=== PATIENT | female | born 1940 | race African-American/Black ===

== ENCOUNTER 2017-01-18 21:25 | Inpatient (IN) ==
[2017-01-18 23:15] LABS: MANUAL DIFF NEEDED? NO
[2017-01-18 23:18] LABS: BASO% 0.3 % (0.0-0.8); HEMATOCRIT 38.6 % (37.0-47.0); HEMOGLOBIN 12.6 g/dL (12.0-16.0); LYMPH# 1.13 X1000 (1.2-3.4); LYMPH% 28.4 % (20.5-51.1); MCH 29.5 PG (27-31); MCHC 32.6 g/dL (33-37); MCV 90.4 FL (81-99); MONO# 0.35 X1000 (0.11-0.59); MONO% 8.8 % (1.7-9.3); MPV 12.2 FL (7.4-10.4); NEUT% 62.5 % (42.2-75.2); PLT 154 X1000 (130-400); RBC 4.27 XMIL (4.2-5.4)
[2017-01-19] LABS: AGAP 11; ALBUMIN 3.3 g/dL (3.5-5.0); ALKALINE PHOSPHATASE 36 U/L (32-104); BUN 15 mg/dL (8-22); CALCIUM 9.9 mg/dL (8.8-10.2); CHLORIDE 100 mmol/L (98-107); COSMO 284; GOT 24 U/L (10-30); GPT 11 U/L (10-36); POTASSIUM 2.5 mmol/L (3.5-5.1); SODIUM 142 mmol/L (136-145); TCO2 31 mmol/L (25-35); TOTAL BILIRUBIN 1.56 mg/dL (0.20-1.00); TOTAL PROTEIN 6.1 g/dL (6.3-8.3)
[2017-01-19 01:22] LABS: INR 1.37; PROTIME 14.7 Seconds (9.2-11.7); PTT 27.9 Seconds (22.0-36.0)
[2017-01-19] MEDS: POTASSIUM CHLORIDE 20 MEQ/SWI 20 MEQ/100 ML IVPB IV SCH ×4 (01:43→16:12)
--- NOTE | 2017-01-19 01:46 | PROVIDER DOCUMENTATION ---
HPI-General Adult - General Chief Complaint: Edema Stated Complaint: SWOLLEN FEET/LEGS Time Seen by Provider: 01/18/17 22:02 Source: patient, family Allergies/Adverse Reactions: Patient Allergies Allergy/AdvReac Type Severity Reaction Status Date / Time No Known Allergies Allergy Verified 01/18/17 22:01 - History of Present Illness -Gen Adult Nature of Presenting Problems: PT C/O SWELLING TO BILATERAL LEGS. DAUGHTER STS THIS STARTED TODAY. STS PT IS MOSTLY IMMOBILE AND STAYS IN BED A LOT, CAUSING HER TO GET A BEDSORE. DENIES HEART FAILURE OR RENAL ISSUES. Location of Pain/Injury: reports: lower extremity Quality of Pain: reports: none Onset/Duration: reports: this morning Timing: reports: still present Associated Symptoms: reports: denies symptoms Similar Symptoms Previously?: No Recently seen or treated by another doctor?: No Review of Systems - Adult - REVIEW OF SYSTEMS - ADULT Constitutional: reports: no symptoms reported. denies: fever Eyes: reports: no symptoms reported Ears, Nose, Mouth & Throat: reports: no symptoms reported Cardiovascular: reports: see HPI, edema. denies: chest pain, palpitations, syncope Respiratory: reports: no symptoms reported. denies: cough, dyspnea on exertion , shortness of breath Gastrointestinal: reports: no symptoms reported. denies: abdominal pain, constipation, diarrhea, nausea Genitourinary: reports: no symptoms reported. denies: dysuria Musculoskeletal: reports: no symptoms reported Integumentary: reports: see HPI, skin sores/ulcer Neurological: reports: no symptoms reported. denies: dizziness/vertigo Psychiatric: reports: no symptoms reported Endocrine: reports: no symptoms reported Hematologic/Lymphatic: reports: no symptoms reported Allergic/Immunologic: reports: no symptoms reported All Other Systems: Reviewed and Negative Past History - Adult - PAST MEDICAL HISTORY-ADULT Review of Records: reports: Nursing Assessment Review, Medications Reviewed Major Childhood Illnesses: reports: denies history Cardiovascular: reports: HTN Respiratory: reports: denies history Gastrointestinal: reports: denies history Obstetrical/Gynecological: reports: denies history Genitourinary: reports: denies history Musculoskeletal: reports: denies history Neurological: reports: denies history Psychiatric: reports: denies history Endocrine/Immune: reports: denies history Other Conditions: reports: denies history Physical Exam-General - PHYSICAL EXAM-ADULT Initial Vital Signs Reviewed: Yes - CONSTITUTIONAL General Appearance: appears well, alert, no apparent distress, thin - EYES Eyes: PERRL/EOMI - HEAD, EARS, NOSE, MOUTH & THROAT HENMT: normocephalic/atraumatic, moist mucous membranes - RESPIRATORY Respiratory: chest non-tender, lungs clear, normal breath sounds, no pleuratic chest pain, no respiratory distress, no accessory muscle use - CARDIOVASCULAR Cardiovascular: normal peripheral pulses, tachycardia, irregularly irregular - GASTROINTESTINAL (ABDOMEN) Abdominal Exam: normal bowel sounds, non tender, soft, no organomegaly, no pulsatile mass - MUSCULOSKELETAL Back Exam: normal inspection Extremity: normal range of motion, non-tender, no calf tenderness, normal capillary refill, pedal edema (3+ PITTING) Peripheral Pulses: dorsalis-pedis (R): 3+, dorsalis-pedis (L): 3+ - SKIN Integumentary: normal color, normal turgor, warm/dry, decubitus (TO RT BUTTOCK, PROBABLE STG 2) - NEUROLOGIC Neurologic: grossly normal, no motor/sensory deficits - PSYCHIATRIC Psych/Mental Status: normal mood/affect, oriented x 3 Progress - PLAN OF CARE/RESULTS Progress/Plan/Lab Results: Vital Signs - 8 hr 01/18/17 21:29 01/19/17 00:53 Temperature 98.5 F Pulse Rate 115 H 102 H Respiratory Rate 18 18 Blood Pressure 151/107 149/112 O2 Sat by Pulse Oximetry 99 99 Laboratory Results - last 24 hr 01/18/17 01/18/17 01/18/17 22:50 22:50 22:50 WBC 3.98 L RBC 4.27 Hgb 12.6 Hct 38.6 MCV 90.4 MCH 29.5 MCHC 32.6 L RDW Std Deviation 15.7 H Plt Count 154 MPV 12.2 H Immature Gran % (Auto) 0.0 Neut % (Auto) 62.5 Lymph % (Auto) 28.4 Andrew % (Auto) 8.8 Eos % (Auto) 0.0 Baso % (Auto) 0.3 Immature Gran # (Auto) 0.00 Neut # (Auto) 2.49 Lymph # (Auto) 1.13 L Andrew # (Auto) 0.35 Eos # (Auto) 0.00 Baso # (Auto) 0.01 PT INR PTT (Actin FS) Sodium 142 Potassium 2.5 L* Chloride 100 Carbon Dioxide 31 Anion Gap 11 BUN 15 Creatinine 0.6 Estimated GFR/1.73 m2 > 60 BUN/Creatinine Ratio 25 Glucose 94 Calculated Osmolality 284 Calcium 9.9 Total Bilirubin 1.56 H AST 24 ALT 11 Alkaline Phosphatase 36 Creatine Kinase Troponin T Hwv-T-Tslrebbhnjm Pept 1492 H Total Protein 6.1 L Albumin 3.3 L Globulin 2.8 Albumin/Globulin Ratio 1.2 01/18/17 01/18/17 01/18/17 22:50 22:50 22:50 WBC RBC Hgb Hct MCV MCH MCHC RDW Std Deviation Plt Count MPV Immature Gran % (Auto) Neut % (Auto) Lymph % (Auto) Andrew % (Auto) Eos % (Auto) Baso % (Auto) Immature Gran # (Auto) Neut # (Auto) Lymph # (Auto) Andrew # (Auto) Eos # (Auto) Baso # (Auto) PT 14.7 H INR 1.37 PTT (Actin FS) 27.9 Sodium Potassium Chloride Carbon Dioxide Anion Gap BUN Creatinine Estimated GFR/1.73 m2 BUN/Creatinine Ratio Glucose Calculated Osmolality Calcium Total Bilirubin AST ALT Alkaline Phosphatase Creatine Kinase 93 Troponin T < 0.010 Nrt-N-Bcfhfrrcsbm Pept Total Protein Albumin Globulin Albumin/Globulin Ratio Orders Category Date Time Status Saline Loc NOW Care 01/18/17 22:34 Active CHEST-1 VIEW [RAD] Stat Exams 01/19/17 00:37 Taken CBC WITH ELECTRONIC DIFF [HEME] Stat Lab 01/18/17 22:50 Completed CK PROFILE [SP CHEM] Stat Lab 01/19/17 01:05 Completed COMPREHENSIVE METABOLIC PANEL [CHEM] Stat Lab 01/18/17 22:50 Completed PRO B-NATRIURETIC PEPTIDE Stat Lab 01/18/17 22:50 Completed PT [PROTIME WITH INR] [COAG] Stat Lab 01/19/17 01:05 Completed PTT [COAG] Stat Lab 01/19/17 01:05 Completed TROPONIN T Stat Lab 01/19/17 01:05 Completed Potassium Chloride 20 Meq/Swi Med 01/19/17 01:00 Active 20 meq in 100 ml IV Q2H EKG [EKG] Stat Ther 01/19/17 00:24 Ordered Result Diagrams: 01/18/17 22:50 01/18/17 22:50 - CONSULTS/PCP/HOSPITALIST Notification #1 *Consult/PCP/Hospitalist*: DR. CALDERA Time Discussed: 01:00 (DISCUSSED PT EXAM AND LABS WITH DR. CALDERA WHO AGREES TO ADMIT.) Consult Disposition: Admit Departure - Departure Date of Disposition Decision: 01/19/17 Time of Disposition Decision: 01:00 DIAGNOSIS: New onset atrial fibrillation, Pedal edema, Hypokalemia Disposition: ADMITTED INPATIENT 09 Certified Medical Emergency: Emergent Condition: Stable - Critical Care Note This patient required my direct & personal management of CC.: No Attestation - Physician/ KATIE Attestation Patient care was provided by Advanced Practice Provider:: Yes Advanced Practice Provider:: Sydnie Blanc Advanced Practice Provider documentation review:: The Mid-level provider documentation, treatment plan and medical decision making was reviewed by the physician who agrees with all treatment and medical decision making by the MLP.
[2017-01-19] MEDS ORDERED: ZOFRAN IV PRN (01:54)
[2017-01-19] MEDS ORDERED: LOPRESSOR PO ONE (01:54)
[2017-01-19] MEDS ORDERED: CARDIZEM 100 MG/NS 100 MG/100 ML IVPB IV SCH (01:54)
[2017-01-19] MEDS: LASIX IV SCH ×2 (02:32→13:19)
[2017-01-19] MEDS ORDERED: TYLENOL PO PRN (03:25)
[2017-01-19 03:28] LABS: URINE CULTURE NEEDED? NO; URINE MICRO REVIEW NEEDED? NO; URINE SOURCE CATH
[2017-01-19] MEDS ORDERED: LANOXIN IV ONE (03:29)
[2017-01-19 03:35] LABS: BILIRUBIN URINE NEGATIVE (NEGATIVE); BLOOD URINE SMALL (NEGATIVE); COLOR STRAW; GLUCOSE URINE NEGATIVE (NEGATIVE); LEUKOCYTES URINE NEGATIVE (NEGATIVE); NITRITE URINE NEGATIVE (NEGATIVE); PROTEIN URINE NEGATIVE (NEGATIVE); SP GRAVITY URINE 1.004; TURBIDITY URINE HAZY (CLEAR); UROBILINOGEN URINE NORMAL (NORMAL)
[2017-01-19 03:37] LABS: UR EPITHELIAL CELLS >10 /HPF (<10); URINE BACTERIA NEGATIVE /HPF; URINE RBC <10 /HPF (<10); URINE WBC <10 /HPF (<10)
[2017-01-19] MEDS ORDERED: B & O 15A SUPP PR ONE (04:18)
[2017-01-19] MEDS ORDERED: LOVENOX SUBQ ONE (04:29)
[2017-01-19] MEDS ORDERED: PRILOSEC PO ONE (04:29)
[2017-01-19] MEDS ORDERED: MAGNESIUM SULFATE 1 GM/D5W 1 GM/100 ML IVPB IV ONE (05:29)
[2017-01-19 05:38] LABS: MANUAL DIFF NEEDED? NO
[2017-01-19 05:48] LABS: BASO% 0.9 % (0.0-0.8); HEMATOCRIT 46.8 % (37.0-47.0); HEMOGLOBIN 15.3 g/dL (12.0-16.0); LYMPH% 24.1 % (20.5-51.1); MCH 29.4 PG (27-31); MCHC 32.7 g/dL (33-37); MONO# 0.27 X1000 (0.11-0.59); MONO% 5.9 % (1.7-9.3); MPV 12.1 FL (7.4-10.4); NEUT% 69.1 % (42.2-75.2); PLT 157 X1000 (130-400)
[2017-01-19 06:23] LABS: MAGNESIUM 1.3 mg/dL (1.5-2.7)
--- NOTE | 2017-01-19 06:31 | EKG Report ---
Test Performed on : 01/19/2017 00:51:48 AM Test Reason : TACHYCARDIA Blood Pressure : / mmHG Vent. Rate : 096 BPM Atrial Rate : 375 BPM P-R Int : 000 ms QRS Dur : 112 ms QT Int : 392 ms P-R-T Axes : 000 082 027 degrees QTc Int : 495 ms Atrial fibrillation. Minimal voltage criteria for LVH, may be normal variant Nonspecific ST and T wave abnormality Prolonged QT Abnormal ECG No previous ECGs available Unconfirmed Result
--- NOTE | 2017-01-19 06:36 | EKG Report ---
Test Performed on : 01/19/2017 05:36:50 AM Test Reason : Heart Failure Admission Blood Pressure : / mmHG Vent. Rate : 072 BPM Atrial Rate : 104 BPM P-R Int : 000 ms QRS Dur : 090 ms QT Int : 468 ms P-R-T Axes : 000 085 095 degrees QTc Int : 512 ms Atrial fibrillation. Voltage criteria for left ventricular hypertrophy Nonspecific ST and T wave abnormality Prolonged QT Abnormal ECG When compared with ECG of 19-JAN-2017 00:51, (Unconfirmed) ST now depressed in Anterior leads Inverted T waves have replaced nonspecific T wave abnormality in Anterior leads Confirmed by Jessy Voss MD ([id number]) on 01/19/2017 12:51:24 PM
--- NOTE | 2017-01-19 07:38 | Diag Imaging Result Doc PS360 ---
EXAM: CHEST-1 VIEW HISTORY: NEW ONSET AFIB TECHNIQUE: AP portable at 0050 COMMENT: There is cardiomegaly. There is increased interstitial markings between the right parahilar region. IMPRESSION: Cardiomegaly and minimal interstitial pulmonary edema. Electronically signed by Beltran Cornejo 01/19/2017 7:36 AM
[2017-01-19 08:19] LABS: AGAP 16; BUN 14 mg/dL (8-22); CHLORIDE 98 mmol/L (98-107); COSMO 288; POTASSIUM 3.4 mmol/L (3.5-5.1); SODIUM 144 mmol/L (136-145); TCO2 30 mmol/L (25-35)
[2017-01-19] MEDS: AVAPRO PO SCH (10:09)
[2017-01-19] MEDS ORDERED: MAGNESIUM SULFATE 2 GM/S.W.I. 2 GM/50 ML IVPB IV ONE (12:03)
--- NOTE | 2017-01-19 13:26 | HISTORY AND PHYSICAL ---
PRIMARY CARE PROVIDER: Sylwia Larios MD. Date and Time of History and Physical: 01/19/2017 at 0130. CHIEF COMPLAINT: Edema and shortness of breath. HISTORY OF PRESENT ILLNESS: Ms. Montez is a 76-year-old, female , who presented to the ER [facility] with complaints of increased edema in her legs as well as feeling increasingly short of breath, weak, over the past few days. She has also reported some intermittent dizziness. The patient's daughter who was at bedside reports that she frequently has swelling in her extremities, though this is usually unilateral. Though the patient's son who lives with her noticed that for the past 2 days both of her feet have been quite swollen and this has steadily gotten worse. The patient also complains of shortness of breath that has steadily gotten worse as well. She states that she becomes very short of breath, weak and tired with exertion and has to sit down and rest often. The patient denies any previous cardiac history except for reported hypertension. She states that she has not seen Dr. Larios in over a year. She currently lives at home. Her son does live with her and helps care for her. At this time , daughter states that normally she is able to get around independently, though does have a walker if she needs it, though she does not use it often. Her daughter reports that for the past 5 years, her mother has had symptoms of dementia and has noticed that they have progressively gotten worse. The patient is alert and oriented to person and place, though not time. She is able to answer some questions of history of present illness and past medical history, though at times is pleasantly confused. She denies any headache, visual changes, chest pain, cough, abdominal pain, nausea, vomiting, or diarrhea. She reports that her last bowel movement was yesterday. She denies any hematochezia or melena. She denies any dysuria or urinary frequency or changes in her urinary output. Other than the swelling in her bilateral lower extremities, she denies any pain, numbness or tingling in extremities. The patient does complain of some low back pain on her coccyx, sacrum area. It does appear that the patient does have a pressure wound that has developed. She stated initially that she thought she bumped this on something and it has just steadily gotten worse. She does have some broken skin noted to this area. Upon evaluation in the ER, she was found to have elevated proBNP of 1492. Chest x-ray did show increased pulmonary vascular markings. EKG showed atrial fibrillation at a rate of 96. The patient also had a potassium of 2.5. All other cardiac enzymes were negative at the time. At this time, we will admit the patient for further treatment and evaluation of her new onset atrial fibrillation as well as congestive heart failure and hypokalemia. REVIEW OF SYSTEMS: A 12 point review of systems was conducted with the patient and all were negative except for pertinent positives mentioned in above HPI. PAST MEDICAL HISTORY: Hypertension. PAST SURGICAL HISTORY: 1. Hysterectomy. 2. An unknown abdominal surgery for what the daughter describes was secondary to some gastrointestinal bleeding from NSAID use, though we are not sure how long ago this surgery was performed. SOCIAL HISTORY: The patient denies any cigarette use, though does use smokeless tobacco. She denies any alcohol or illicit drug use. As previously mentioned, she currently lives at home with her son, who helps take care of her. She usually ambulates independently, though does have a walker if she needs help. FAMILY HISTORY: Positive for her mother having a history of congestive heart failure. Her daughter states that the patient's father at the age of 5 and they do not know his cause of . She does have 7 other siblings though she cannot tell me any of their medical history. ALLERGIES: The patient has no known allergies. HOME MEDICATIONS: We are awaiting the patient's home medication list to be updated at this time though looking back in the pharmacy external medication history, it does show that the patient has filled a prescription for metoprolol tartrate 25 mg as well as irbesartan hydrochlorothiazide combination tablet, 300-12.5 mg. At this time, we have placed orders for the patient home medications to be verified with her pharmacy. DIAGNOSTIC DATA/LABORATORY RESULTS: White blood cell count 3.98, hemoglobin 12.6, hematocrit 38.6, platelet count 154. PT 14.7. INR 1.37. PTT is 27.9. Sodium 142, potassium 2.5, chloride 100, bicarb 31, BUN 15, creatinine 0.6, glucose 94, calcium 9.9, magnesium 1.4. Total bilirubin is 1.56, AST 24, ALT 11, alkaline phosphatase is 36. CK 93, troponin less than 0.01. Urinalysis was obtained via catheter, was positive for small blood. It was otherwise within normal limits. EKG showed atrial fibrillation at her rate of 96. Also noted was nonspecific ST and T-wave abnormality as well as a prolonged QT. QTc was 495. Chest x-ray showed increased pulmonary vascular markings, though we are awaiting the official radiology over-read. PHYSICAL EXAMINATION: VITAL SIGNS: Temperature 98.8, heart rate 110, respiratory rate 20, blood pressure 135/82. Oxygen saturation was 92% nasal cannula on room air, though on 2 L, she did improve to 96%. GENERAL: Ms. Montez is a very pleasant, 76-year-old, female who is resting comfortably in the ER stretcher. She is in no acute distress. She was awake and alert. The patient did know that she was at the hospital and what her name was, though did not know what month it was, she stated it was August. Other than this, she is pleasantly confused. HEENT: Head is atraumatic, normocephalic. Pupils are equal, round, reactive to light, were 3 mm bilaterally and brisk. Subconjunctiva are pink. Oral mucosa is moist. Oropharynx is clear. NECK: Supple. Trachea midline. No carotid bruits noted upon auscultation bilaterally. The patient does have JVD noted. CARDIOVASCULAR: Patient has normal S1, S2. No murmurs, gallops, rubs appreciated with a tachycardic rate that is irregular. PULMONARY: Patient has symmetrical chest expansion bilaterally. Lung sounds are clear to auscultation in bilateral full walsh. ABDOMEN: Soft, nontender, nondistended. Bowel sounds were present and all 4 quadrants were slightly hyperactive. EXTREMITIES: No cyanosis or clubbing noted. The patient does have edema noted from mid thigh down on bilateral lower extremities. From approximately ankle down, she has 3+ pitting edema. Pulse, motor and sensory is intact though. Pedal pulses are 3+ bilaterally. Capillary refill less than 3. INTEGUMENTARY: The patient's skin is pink, warm, dry, and intact. No lesions or sores noted. NEUROLOGICAL: The patient is alert and oriented to person, and place only. Though other than stating the month wrong, she did answer some questions correctly, that has required the assistance of her daughter at bedside for obtaining history of present illness as well as past medical history. Otherwise cranial nerves 2-12 are grossly intact. ASSESSMENT AND PLAN: 1. Congestive heart failure. The patient does not have a previous history of this. We will diurese her with Lasix 40 mg IV q.12 hours. We have also placed her on metoprolol 50 mg twice a day. We will repeat EKG in the morning. We will do a series of cardiac enzymes. I have placed an order for an echocardiogram in the morning as well. She will be on a heart healthy diet. We will do daily weights. Strict intake and output. We did place a consult with Cardiology and will await their evaluation and further recommendations. 2. New onset atrial fibrillation. Initially, the patient's rate was not that high, it was ranging from the 90s to 120s, though during my examination in the ER, the patient's heart rate did increase, getting up to the 160s to 170s. She was placed on a Cardizem drip and given a stat dose of metoprolol 50 mg p.o. Though her heart rate was still sustaining in the 160s, we did go ahead and give her a dose of digoxin 250 mcg IV. After receiving these medications, the patient's heart rate did improve. It actually improved so much though that we were able to turn the Cardizem drip off at this time though we will continue to closely monitor her heart rate. At this time, she still has atrial fibrillation but it is rate controlled. Given the patient's history, she does have a ANNA score of 5. We did go ahead and decide to provide anticoagulation with Lovenox 1 mg/kg x1 dose and we will allow Cardiology to decide further anticoagulation. We did order a TSH as well and are awaiting those results at this time and will continue to follow. 3. Hypertension. We will continue the patient's irbesartan, though we have ordered this by itself only, 300 mg p.o. daily. We have discontinued the hydrochlorothiazide given that the patient does have hypokalemia noted and this could be secondary to this medication. 4. Hypokalemia. The patient was given 40 mEq of potassium chloride IV. We will monitor her cardiac status closely and repeat a BMP after infusion. 5. Hypomagnesemia. Her magnesium was slightly low at 1.3. We will replenish this with 1 g of Mag sulfate IV and continue to follow. 6. Deep vein thrombosis prophylaxis was provided with previously mentioned Lovenox though this is a one time dose. We are awaiting Cardiology for further recommendations on further anticoagulation. The patient was placed in ICU with telemetry. We did go ahead and place her on Prilosec. A Loading dose of 40 mg x1 dose with 20 mg p.o. daily for gastrointestinal prophylaxis. We did place a wound care consult for the patient's pressure sore on her sacrum. Further orders and recommendations pending hospital course, diagnostic studies, and physician evaluation. CRITICAL CARE TIME: On this patient was approximately 45 minutes. Dictated by MEI Villa for Maximus Cartwright MD Seen,examined and discussed plan of care with CUSTOMS PORT DIRECTOR. cc: Maximus Cartwright MD MTDD
--- NOTE | 2017-01-19 17:43 | CONSULTATION ---
DATE OF CONSULTATION: 01/19/2017 CARDIOLOGY CONSULT NOTE: IMPRESSION: 1. Paroxysmal atrial fibrillation. Patient developed atrial fibrillation, rapid ventricular rate, and has subsequently developed some tendency toward bradycardia on intravenous Cardizem, low-dose metoprolol, and addition of digoxin. 2. Acute on chronic heart failure, probably diastolic in nature. Cannot entirely exclude a component of right-sided heart failure. 3. Hypertensive cardiovascular disease. 4. Hyperlipidemia. 5. Dementia. RECOMMENDATIONS: 1. Cautious diuresis. 2. Discontinue intravenous diltiazem and digoxin. We will try to manage the patient's heart rate with judicious metoprolol. 3. The patient has CHADS Vasc score significant enough to consider anticoagulation for thromboembolic risk protection. However patient has difficulty with ambulation and is a fall risk. Her regular binding folder machine has elected to treat her with anti-platelet agent, aspirin, and this appears reasonable. 4. Hypokalemia and hypomagnesemia. Replete electrolytes. 5. Echocardiography. HISTORY: This 76-year-old female with past history of hypertensive cardiovascular disease, diastolic heart failure, paroxysmal atrial fibrillation, hyperlipidemia, and dementia was admitted with dyspnea and bilateral lower extremity swelling. She was found to be in atrial fibrillation with rapid ventricular rate. She has started on intravenous Cardizem and admitted to the intensive care unit. She is being diuresed. Digoxin was also utilized for rate control along with metoprolol. She developed some tendency for bradycardia and intravenous Cardizem has been discontinued. The patient is not contributing much to the history gathering due to her dementia. History obtained from her family and from the current medical record. She recently started having progressive lower extremity swelling and then developed some dyspnea. There has been no chest pain. She is ambulatory on a limited basis. She has a bed sore due to the fact that she stays in bed a fair amount of time. There has been no chest pain or syncope. PAST MEDICAL HISTORY: 1. Paroxysmal atrial fibrillation. 2. Hypertension. 3. Depression. 4. Dementia. 5. Hyperlipidemia. 6. Gastroesophageal reflux. PAST SURGICAL HISTORY: Includes abdominal surgery for small bowel obstruction. ALLERGIES: She has no known drug allergies. MEDICATIONS: As listed. SOCIAL HISTORY: She lives with her son. She does not smoke currently. There is some history of smoking in the past. She does not use alcohol. FAMILY HISTORY: Negative for premature coronary disease. REVIEW OF SYSTEMS: Not reliably obtainable given patient's dementia. PHYSICAL EXAMINATION: General: This is a thin, elderly female in no distress on supplemental oxygen per nasal cannula. Vital Signs: As recorded are stable. HEENT: Extraocular movements appear intact. Mucous membranes moist. Neck: Supple. Jugular distention is evident, suggesting elevated central venous pressure. Chest: Clear to auscultation anteriorly. Cardiac Exam: A irregular rate and rhythm without appreciable murmur or gallop. Abdomen: Soft. Bowel sounds audible. Extremities: Demonstrate moderate pretibial edema. Neurologic Exam: Reveals her to be somewhat sleepy but arousable. She appears to be confused. Speech is fluent when she does talk. She moves all 4 extremities equally well. DIAGNOSTIC DATA: EKG this morning shows atrial fibrillation, voltage criteria for left hypertrophy, and nonspecific ST and T-wave abnormality. Mild QT prolongation also demonstrated. LAB DATA: Remarkable for pro B-type natriuretic peptide level 1492, magnesium 1.3, potassium 3.4. cc: Hany Rogel MD
[2017-01-19] MEDS: LOPRESSOR PO SCH ×2 (21:25→21:31)
[2017-01-20] MEDS: LASIX IV SCH ×2 (03:13→15:12)
[2017-01-20 05:59] LABS: AGAP 9; BUN 15 mg/dL (8-22); CALCIUM 9.8 mg/dL (8.8-10.2); CHLORIDE 98 mmol/L (98-107); COSMO 293; SODIUM 147 mmol/L (136-145); TCO2 40 mmol/L (25-35)
[2017-01-20] MEDS: PRILOSEC PO SCH (06:11)
[2017-01-20] MEDS: AVAPRO PO SCH (09:11)
[2017-01-20] MEDS: LOPRESSOR PO SCH ×2 (09:12→22:29)
--- NOTE | 2017-01-20 10:30 | EKG Report ---
Test Performed on : 01/20/2017 08:46:38 AM Test Reason : afib Blood Pressure : / mmHG Vent. Rate : 071 BPM Atrial Rate : 094 BPM P-R Int : 000 ms QRS Dur : 088 ms QT Int : 418 ms P-R-T Axes : 000 061 -42 degrees QTc Int : 454 ms Atrial fibrillation. Nonspecific ST and T wave abnormality Abnormal ECG When compared with ECG of 19-JAN-2017 05:36, T wave inversion no longer evident in Lateral leads QT has shortened Confirmed by Jessy Voss MD ([id number]) on 01/20/2017 1:10:35 PM
[2017-01-20] MEDS: POTASSIUM CHLORIDE 60 MEQ in NS 500 ML IV SCH ×2 (10:54→17:12)
--- NOTE | 2017-01-20 14:48 | PROGRESS NOTE ---
DATE: 01/20/2017 SUBJECTIVE: Patient is not talkative but as per family who is at bedside, patient denies any chest pain, shortness of breath, fever or chills. OBJECTIVE: Vital Signs: Temperature 98.1 degrees, heart rate 84, respiratory rate 18, blood pressure 118/77, O2 saturation 100% 2 L nasal cannula. General Examination: This is a chronically ill-looking, frail 76-year-old female lying in bed, in no acute distress. HEENT: Head is normocephalic, atraumatic. Anicteric sclerae and pale conjunctivae. Mucous membranes moist. Neck: Supple. No JVD noted. No carotid bruits. No lymphadenopathy. No thyromegaly. Cardiovascular: S1, S2 heard. Irregularly irregular heart rhythm. No murmurs, gallops, or rubs. Respiratory: Clear bilaterally to auscultation. No work of breathing or using accessory muscles. Abdomen: Soft, nontender to palpation. Bowel sounds present. No organomegaly. Extremities: No clubbing, cyanosis, but she had edema from the right side down on bilateral lower extremities. Peripheral pulses present but faint. Neurological: Patient is alert, oriented on person and place only. Moves 4 extremities. LABORATORY DATA: The BMP from today shows the potassium 3.0. Rest of the BMP is completely normal. ASSESSMENT AND PLAN: 1. Paroxysmal atrial fibrillation. Initially this patient was admitted to the hospital for atrial fibrillation with rapid ventricular response but after she was given IV Cardizem she shows some tendency towards bradycardia so that medication is stopped and currently she is on low dose of metoprolol. At this point, we are going to continue with the same management and Cardiology has been consulted. Regarding anticoagulation for this patient considering high risk to fall, I think with aspirin that Cardiology recommended is the best for her. 2. Acute on chronic diastolic heart failure. At this point, this patient is more stable. There is just mild edema. Currently the patient is being diuresis with Lasix 40 mg IV q.12 hours. 3. Hypertension. Patient is on irbesartan. Will continue with the same management although we need to be very careful because the potassium is high. 4. Hypomagnesemia. Resolved. 5. Deep vein thrombosis prophylaxis with SCDs. cc: Eitan Garcia MD
--- NOTE | 2017-01-20 19:07 | PROGRESS NOTE ---
DATE: 01/20/2017 SUBJECTIVE: The patient continues without chest discomfort or dyspnea. She is not currently wearing her oxygen. OBJECTIVE: Vital Signs: Blood pressure 117/81 with heart rate of 81. Oxygen saturation 99-100% on nasal cannula oxygen earlier. Jugular venous pressure estimated to be approximately 8. Chest: Clear to auscultation bilaterally. Cardiac Examination: Reveals an irregular rhythm without appreciable murmur or gallop. Extremities: There is no evidence of peripheral edema. IMPRESSION: 1. Paroxysmal atrial fibrillation. 2. Acute on chronic heart failure probably diastolic in nature with possible component of right- sided heart failure. 3. Hypertensive cardiovascular disease. 4. Hyperlipidemia. 5. Dementia. RECOMMENDATIONS: 1. Continue beta-imer as tolerated. 2. The patient has CHADS VASC score significantly elevated enough to consider anticoagulation for thromboembolic risk protection. However, patient has difficulty with ambulation and is a fall risk. Her regular team member has elected to treat her with antiplatelet agent aspirin and this is certainly reasonable. 3. Continue diuresis but anticipate being able to transition back to oral Lasix in the next 24 hours. cc: Hany Rogel MD
--- NOTE | 2017-01-20 19:21 | ECHO REPORT ---
ORDER DATE: 01/20/2017 MEASUREMENTS: Left ventricular end-diastolic diameter 4.9, systolic diameter 3.4, posterior wall thickness 1.2, septal thickness 1.1, left atrium 3.0, aortic root 3.2. SUMMARY: 1. Adequate quality study. 2. Aortic valve is trileaflet and opens normally on 2-dimensional images. There is mild aortic regurgitation. Mitral, tricuspid, and pulmonic valves are without structural abnormality with moderate mitral regurgitation, mild to moderate tricuspid regurgitation, and mild pulmonic insufficiency. The estimated systolic PA pressure by Doppler is 65-70 mmHg. Aortic root is normal size. 3. Normal ventricular chamber size with mild concentric left hypertrophy is demonstrated. Estimated left ejection fraction is approximately 40% in the setting of global hypokinesis. Left atrium is mildly enlarged on 2-dimensional images. Right atrium is also mildly enlarged. The right ventricle is normal size with normal right ventricular systolic function. 4. Small posterior pericardial effusion. 5. Appearance of inferior vena cava suggests normal central venous pressure. 6. Atrial fibrillation during study. cc: Hany Rogel MD
[2017-01-21] MEDS: HALDOL IM PRN ×3 (01:01→06:22)
[2017-01-21] MEDS: LASIX IV SCH ×2 (03:13→14:04)
[2017-01-21] MEDS: PRILOSEC PO SCH (06:19)
[2017-01-21] MEDS: LOPRESSOR PO SCH (10:56)
[2017-01-21] MEDS: AVAPRO PO SCH (10:56)
[2017-01-21] MEDS ORDERED: POTASSIUM CHLORIDE 60 MEQ in NS 500 ML IV ONE (13:00)
[2017-01-21 15:39] VITALS: BP 131/90
--- NOTE | 2017-01-22 04:03 | DISCHARGE SUMMARY ---
ADMISSION DATE: 01/19/2017 DISCHARGE DATE: 01/21/2017 DISCHARGE DIAGNOSES: 1. Paroxysmal atrial fibrillation, stable. 2. Congestive heart failure, improved. 3. Hypertension. 4. Hypokalemia. 5. Hypomagnesemia. CONSULTATIONS: Dr. Hany Rogel from cardiology. PROCEDURES: Echocardiogram showed an ejection fraction of 40% with atrial fibrillation during study, small posterior pericardial effusion. HOSPITAL COURSE: This is a 76-year-old, female who presented to the emergency department complaining of increased edema in the legs and also shortness of breath. In the ER, she was found to be in atrial fibrillation and this is a new condition for her. Admitted to the hospital for further evaluation and treatment. She was placed on Lasix 40 mg IV q.12 hours. Initially, she was started on a Cardizem drip in the ER and she was transferred to the intensive care unit but then the heart rate goes very low, in the range of 40 or 50 so we stopped the medication same day and since then, the heart rate was able to be controlled with beta-blockers. Patient was doing okay and on initially requiring some oxygen. At the time of discharge, she is going home with room air. Patient reports feeling fine. She is not too talkative but as per daughter who has been in the hospital every single day, reports that she is feeling much better. Able to walk around so she is going to be discharged in stable condition. Regarding management of paroxysmal atrial fibrillation, apparently primary pharmacy innovation assistant has decided to place her on aspirin only, considering her high risk of bleeding. DISCHARGE PHYSICAL EXAMINATION: Vital Signs: Temperature 98 degrees, heart rate 88, respiratory rate 20, blood pressure 130/91, O2 saturation 96% on room air. General Examination: This is a 76- year-old, female lying in bed, in no acute distress. HEENT: Head is normocephalic and atraumatic. Anicteric sclerae and pale conjunctivae. Mucous membranes moist. Neck: Supple. No JVD noted. No carotid bruits. No lymphadenopathy. No thyromegaly. Cardiovascular Examination: S1, S2 heard. No murmurs, gallops, or rubs. Irregularly irregular. S1-S2. Respiratory Examination: Clear bilaterally to auscultation. No work of breathing or using accessory muscles. Abdomen: Soft, nontender to palpation. Bowel sounds present. No organomegaly. Extremities: No clubbing, cyanosis, or edema. Peripheral pulses present in both legs. DISCHARGE DISPOSITION: The patient is going home with self care. LIST OF MEDICATIONS: 1. Aspirin 81 mg 1 tablet p.o. daily. 2. Furosemide 40 mg 1 tablet p.o. daily. 3. Metoprolol 50 mg twice daily. 4. Irbesartan 300 mg 1 tablet p.o. daily. cc: Eitan Garcia MD
== END 2017-01-21 17:02 | disposition home or self-care (01) ==
LOC: ED 21:25 → SUATTDRO 01-19 02:20 → ICU 01-19 02:20 → 4N 01-19 14:16
PROVIDERS: ATTEND Internal Medicine